=== PATIENT | female | born 1965 | race Two or more races ===

== ENCOUNTER 2019-09-25 14:01 | Emergency (ER) | payer OTHER ==
[~2019-09-25] VITALS: Ht 137.2 cm; Wt 51.7 kg
[2019-09-25 14:26] VITALS: BP 127/66
[2019-09-25] MEDS ORDERED: LIDODERM700 M1 TOPIC (15:09)
[2019-09-25] MEDS ORDERED: IBUPROFEN600 MG ORAL (15:09)
[2019-09-25] MEDS ORDERED: ROBAXIN-500MG ORAL (15:09)
--- NOTE | 2019-09-25 15:09 | Emergency Room Report ---
History of Present Illness General Chief Complaint: Pain Source: Patient Present Illness HPI 54-year-old female with no significant past medical history here complaining of right sided neck pain and right shoulder soreness after getting the flu vaccine few weeks ago. No abscess formation noted. Denies any fever and chills. Has full range of motion. Has not taken medication for symptom relief. No bony tenderness noted. Is sitting comfortably with stable vital signs. There is on the right dominant side. Reports that she usually lifts heavy objects without side. Denies fever and chills, recent travel or coming contact with people who have traveled. Denies COVID-19 risk:Travel to affect: No Allergies: Coded Allergies: No Known Allergies (Unverified , 09/25/19) Patient History Past Medical History: see triage record Past Surgical History: none Pertinent Family History: none Now: No Immunizations: UTD Reviewed Nursing Documentation: PMH: Agreed; PSxH: Agreed Nursing Documentation-PMH Past Medical History: No History, Except For Review of Systems All Other Systems: negative except mentioned in HPI Physical Exam Vital Signs Date Time Temp Pulse Resp B/P (MAP) Pulse Ox O2 Delivery O2 Flow Rate FiO2 09/25/19 14:07 98.4 64 16 127/66 (86) 99 Room Air Sp02 EP Interpretation: reviewed, normal General Appearance: no apparent distress, alert, GCS 15, non-toxic Head: normocephalic Eyes: bilateral eye normal inspection, bilateral eye PERRL ENT: hearing grossly normal, normal pharynx, no angioedema, normal voice Neck: full range of motion, supple, no meningismus, no bony tend, no carotid bruits, supple/symm/no masses Respiratory: chest non-tender, lungs clear, normal breath sounds, no rhonchi, no retraction, no wheezing, speaking full sentences Cardiovascular #1: regular rate, rhythm, no edema Cardiovascular #2: 2+ carotid (R), 2+ carotid (L) Gastrointestinal: normal bowel sounds, non tender, soft, non-distended, no guarding, no rebound Rectal: deferred Genitourinary: no CVA tenderness Musculoskeletal: back normal, digits/nails normal, non-tender Neurologic: alert, motor strength/tone normal, oriented x3, sensory intact, responsive, speech normal Psychiatric: judgement/insight normal, memory normal, mood/affect normal, no suicidal/homicidal ideation Skin: no rash Lymphatic: no adenopathy Medical Decision Making PA Attestation All my diagnosis and treatment plans were reviewed ad discussed with my supervising physician Dr. Junior Diagnostic Impression: Primary Impression: Muscle spasm ER Course 54-year-old female with no significant past medical history here complaining of right sided neck pain and right shoulder soreness after getting the flu vaccine few weeks ago. No abscess formation noted. Denies any fever and chills. Has full range of motion. Has not taken medication for symptom relief. No bony tenderness noted. Is sitting comfortably with stable vital signs. There is on the right dominant side. Reports that she usually lifts heavy objects without side. Denies fever and chills, recent travel or coming contact with people who have traveled. Denies Ddx considered but are not limited to : Shoulder sprain versus cervical strain versus fracture versus spasm versus hematoma versus abscess formation Vital signs: are WNL, pt. is afebrile H&PE are most consistent with: Muscle spasm ORDERS: Right shoulder x-ray, C-spine x-ray, Robaxin, Motrin, lidocaine patch ED INTERVENTIONS: None DISCHARGE: At this time pt. is stable for d/c to home. Will provide printed patient care instructions, and any necessary prescriptions. Care plan and follow up instructions have been discussed with the patient prior to discharge. Follow-up primary care provider, avoid strenuous physical activity as directed , if worsening symptoms return to the emergency room Other X-Ray Diagnostic Results Other X-Ray Diagnostic Results #1: X-Ray ordered: shoulder # of Views/Limited Vs Complete: 3 View Indication: Pain EP Interpretation: Yes PA Xray: Interpretation reviewed, by supervising MD, and agrees with findings. Interpretation: no dislocation, no soft tissue swelling, no fractures Impression: No acute disease Electronically Signed by: Mary Alice Cabello PA-C Other X-Ray Diagnostic Results #2: X-Ray ordered: C-spine x-ray # of Views/Limited Vs Complete: 3 View Indication: Pain EP Interpretation: Yes RAJAN Xray: Interpretation reviewed, by supervising MD, and agrees with findings. Interpretation: no dislocation, no soft tissue swelling, no fractures Impression: No acute disease Electronically Signed by: Mary Alice Cabello PA-C Last Vital Signs Date Time Temp Pulse Resp B/P (MAP) Pulse Ox O2 Delivery O2 Flow Rate FiO2 09/25/19 14:26 98.4 16 127/66 99 Room Air 09/25/19 14:07 64 Disposition: HOME, SELF-CARE Condition: Stable Scripts Lidocaine Patch* (Lidoderm Patch*) 1 Each Adh..patch 1 PATCH TOPIC DAILY, #30 PATCH Patch(es) may remain in place for up to 12 hours in any 24-hour period. Prov: Mary Alice Birch 09/25/19 Ibuprofen* (MOTRIN*) 600 Mg Tablet 600 MG ORAL Q8H PRN for For Pain, #30 TAB 0 Refills Prov: Mary Alice Birch 09/25/19 Methocarbamol* (ROBAXIN-500*) 500 Mg Tablet 500 MG ORAL TID PRN for For Pain, #15 TAB 0 Refills Prov: Mary Alice Birch 09/25/19 Patient Instructions: Muscle Cramps and Spasms, [id number] Additional Instructions: Take medication as directed, avoid strenuous physical activity with affected side, if worsening symptoms return to the emergency room Mary Alice Birch Sep 25, 2019 15:09
--- NOTE | 2019-09-25 15:33 | Diagnostic Imaging Report ---
History: TRAUMA Exam: XR RIGHT SHOULDER 3 views Comparison: None available FINDINGS: No fracture or dislocation. The joint spaces appear within limits. Visualized right lung appears clear. IMPRESSION: No fracture or dislocation.
--- NOTE | 2019-09-25 15:36 | Diagnostic Imaging Report ---
History: PAIN Exam: XR C SPINE 3 views Comparison: None available FINDINGS: No evidence of fracture or malalignment. Straightening may represent position or spasm. No evidence of prevertebral swelling. Spondylosis/discogenic change C4-C6. IMPRESSION: No evidence of fracture or malalignment. Straightening may represent position or spasm. No evidence of prevertebral swelling. Spondylosis/discogenic change C4-C6.
== END 2019-09-25 15:16 | disposition home or self-care (01) ==
LOC: EMR 14:43
DX: M62.838 Other muscle spasm (principal)
CPT/HCPCS: 72040; 99284